=== PATIENT | female | born 2000 | race Caucasian/White ===

== ENCOUNTER 2020-01-01 07:50 | Emergency (ER) | payer OTHER ==
[~2020-01-01] VITALS: Ht 170.2 cm; Wt 55.0 kg
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
[2020-01-01 07:55] VITALS: BP 110/81
== END 2020-01-01 08:11 | disposition home or self-care (01) ==
LOC: ED 08:05
DX: Z02.9 Encounter for administrative examinations, unspecified (principal)
CPT/HCPCS: 99282; 99283